=== PATIENT | female | born 1980 | race African-American/Black ===

== ENCOUNTER 2017-03-29 22:05 | Emergency (ER) | payer MEDICARE, OTHER ==
[2017-03-29 19:37] LABS: BASOPHILS 0.3 %; BASOPHILS ABSOLUTE 0.04 10/3/uL (0.0-0.16); EOSINOPHILS 1.4 %; EOSINOPHILS ABSOLUTE 0.18 10/3/uL (0.0-0.53); HEMATOCRIT 41.8 % (36.0-48.0); IMMATURE GRANULOCYTES 0.2 %; IMMATURE GRANULOCYTES ABSOLUTE 0.03 10/3/uL (0.0-0.11); LYMPHOCYTES 15.5 %; LYMPHOCYTES ABSOLUTE 2.04 10/3/uL (0.67-4.30); MEAN CORPUS HGB CONC 33.5 g/dL (32.0-36.0); MEAN CORPUSCULAR HEMOGLOB 27.5 pg (26.0-34.0); MEAN CORPUSCULAR VOLUME 82.1 fL (80-100); MEAN PLATELET VOLUME 10.7 fL (9.2-13.0); MONOCYTES 4.5 %; MONOCYTES ABSOLUTE 0.59 10/3/uL (0.21-1.20); NEUTROPHILS 78.1 %; NEUTROPHILS ABSOLUTE 10.25 10/3/uL (2.02-8.40); PLATELET COUNT 327 10/3/uL (150-400); RBC DISTRIBUTION WIDTH 13.9 % (12.0-16.0); RED CELL COUNT 5.09 10/6/uL (4.0-5.6)
[2017-03-29 19:38] LABS: MANUAL DIFF NO %; WHITE BLOOD CELLS 13.1 10/3/uL (4.5-10.5)
[2017-03-29 19:45] LABS: INTERNATIONAL NORMAL RATI 1.1 UNITS (-); PARTIAL THROMBO TIME 35.4 SEC (22.5-37.2); PROTIME (NOT ORD) 13.8 SEC (12.0-14.5)
[2017-03-29 19:58] LABS: BUN (BLOOD UREA NITROGEN) 13 MG/DL (6-23); CALCIUM, SERUM 9.4 MG/DL (8.5-10.4); CHEST PAIN PROFILE TAT 0 Hrs 26 Mins; CHLORIDE, SERUM 103 MMOL/L (96-112); CO2 (CARBON DIOXIDE) 31 MMOL/L (24-34); CREATININE 0.97 MG/DL (0.55-1.02); GFR AFRICAN AMERICAN 86 ML/MIN (>=60); GFR NON AFRICAN AMERICAN 75 ML/MIN (>=60); POTASSIUM, SERUM 3.3 MMOL/L (3.5-5.3); SODIUM, SERUM 139 MMOL/L (135-148); TROPONIN I <0.02 NG/ML (<0.05)
[2017-03-29 19:59] LABS: GLUCOSE, SERUM 136 MG/DL (60-99)
[~2017-03-29 22:05] MED LIST: *UNABLE1; ALEVE220 MG PO; AMBIEN CR12.5 MG PO; ASAB PO; BACDS PO; BACTROINT TOP; CARTIA XT180 MG/24 PO; CAT2 PO; CELEBREX2 PO; CHANTIX0.5 PO; CLONIDINE; COLCH6 PO; COMBIVENT INH; COREG25 PO; DETROLLA4 PO; DIOVAN HCT320 MG/25 PO; DULERA 200 MCG/13 GM INH; FLONASE NAS; HCTZ25B PO; IMITREX25 PO; L20 PO; LEVAQUIN750 MG PO; LEXAPRO10 PO; LISINOPRIL; LISINOPRIL40 MG PO; LOP100 PO; LOP50 PO; LORCET PO; LORTAB10 PO; MAGOX4 PO; METHOC750B PO; METOPROLOL; MOBIC15 MG PO; MOBIC7.5 PO; MSCONT60 PO; MSCONTIN PO; MUCINEX600 MG PO; NEUR300 PO; NEUR400 PO; NORV10 PO; NORV5 PO; NXL9 PO; PENICILLIN PO; PERCOCET1 TA4 PO; PRILO PO; PRIN20 PO; PROTONIX PO; REQUIP25 PO; REQUIP3 PO; ROXICODONE15 MG PO; SPIRO25 PO; TEKTURNA; TEKTURNA150 MG OR; TOPIRAMATE PO; TRAZ50 PO; VALIUM10 MG PO; ZANAFLEX 4 MG TA4 MG PO; ZOFRAN ODT4 MG PO; ZOFRAN4 PO
== END 2017-03-30 00:35 | disposition home or self-care (01) ==
LOC: ER 22:05
PROVIDERS: Emergency Medicine
DX: R07.9 Chest pain, unspecified (principal); D72.829 Elevated white blood cell count, unspecified; I10 Essential (primary) hypertension; J45.909 Unspecified asthma, uncomplicated; F17.200 Nicotine dependence, unspecified, uncomplicated; Z88.1 Allergy status to other antibiotic agents; Z86.73 Personal history of transient ischemic attack (TIA), and cerebral infarction without residual deficits; Z88.8 Allergy status to other drugs, medicaments and biological substances; Z79.82 Long term (current) use of aspirin; Z79.899 Other long term (current) drug therapy
CPT/HCPCS: 71020; 71275; 80048; 83735; 84484; 85025; 85610; 85730; 93005; 96374; 96376; 99285; Q9967